=== PATIENT | female | born 1985 | race Caucasian/White ===

== ENCOUNTER 2019-10-02 16:21 | Emergency (ER) | payer MEDICAID ==
--- NOTE | 2019-10-02 16:25 | NUR ---
Patient called to triage, but she was busy on a phone call.
--- NOTE | 2019-10-02 17:05 | NUR ---
Patient called, no answer.
--- NOTE | 2019-10-02 17:15 | NUR ---
Patient called to triage, no answer. Patient left without being seen.
== END 2019-10-02 17:15 | disposition left against medical advice (07) ==
LOC: SED 16:21
DX: F41.9 Anxiety disorder, unspecified (principal); Z53.21 Procedure and treatment not carried out due to patient leaving prior to being seen by health care provider

== ENCOUNTER 2019-10-12 08:57 | Emergency (ER) | payer MEDICAID ==
[~2019-10-12] VITALS: Ht 152.4 cm; Wt 45.4 kg
[2019-10-12 09:10] VITALS: BP_SYST 130
[2019-10-12] MEDS ORDERED: LORazepam 2 MG/ML VIAL IM ONE (09:45)
[2019-10-12 10:50] VITALS: BP_SYST 114
== END 2019-10-12 10:50 | disposition home or self-care (01) ==
LOC: SED 08:57
DX: F41.9 Anxiety disorder, unspecified (principal); R11.10 Vomiting, unspecified; R03.0 Elevated blood-pressure reading, without diagnosis of hypertension; F17.200 Nicotine dependence, unspecified, uncomplicated
CPT/HCPCS: 96372; 99283; J2060

== ENCOUNTER 2022-11-18 01:08 | Emergency (ER) | payer MEDICAID ==
[~2022-11-18] VITALS: Ht 165.1 cm; Wt 54.4 kg
[2022-11-18 01:29] VITALS: BP_SYST 120
[2022-11-18] MEDS ORDERED: LORA-258 PO (03:50)
[2022-11-18] MEDS ORDERED: LORazepam 1 MG TABLET PO ONE (04:00)
[2022-11-18 04:34] VITALS: BP_SYST 122
== END 2022-11-18 04:36 | disposition home or self-care (01) ==
LOC: SED 01:08
DX: F41.9 Anxiety disorder, unspecified (principal); Z79.899 Other long term (current) drug therapy
CPT/HCPCS: 99283